=== PATIENT | male | born 1990 | race Caucasian/White ===

== ENCOUNTER 2025-05-19 16:26 | Emergency (ER) | payer BC ==
[~2025-05-19] VITALS: Ht 182.9 cm; Wt 77.1 kg
[2025-05-19] MEDS ORDERED: IBUPROFEN 600 MG TAB PO ONE (17:15)
[2025-05-19] MEDS ORDERED: CEPHALEXIN MONOHYDRATE 500 MG HOME.PACK PO ONE (17:45)
[2025-05-19] MEDS ORDERED: CEPHALEXIN500 M1 PO (17:46)
[2025-05-19 18:05] VITALS: BP 131/85
== END 2025-05-19 18:05 | disposition home or self-care (01) ==
LOC: ED 16:26
DX: M70.42 Prepatellar bursitis, left knee (principal)
CPT/HCPCS: 20610; 87070; 87075; 87205; 89051; 99283-25; A9270